=== PATIENT | female | born 1955 | race African-American/Black ===

== ENCOUNTER 2017-05-24 21:47 | Emergency (ER) | payer OTHER ==
[~2017-05-24] VITALS: Ht 165.1 cm; Wt 85.0 kg
[2017-05-24 21:59] VITALS: BP 188/89; PULSE 74; RESP 16; TEMP 98.5; O2SAT 100
[2017-05-24] MEDS ORDERED: KETOROLAC TROMETHAMINE 60 MG/2 ML (IM) VIAL IM ONE (22:00)
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
--- NOTE | 2017-05-24 23:09 | RADRPT ---
EXAM DATE/TIME: 05/24/2017 22:18 [facility] COMPARISON: No previous studies available for comparison. INDICATIONS : Pain due to fall. MEDICAL HISTORY : None. SURGICAL HISTORY : Tonsillectomy. section. ENCOUNTER: Initial ACUITY: 1 day PAIN SCORE: 8/10 LOCATION: Cervical spine. FINDINGS: Cervical spine alignment is normal. Vertebral bodies have normal height. I don't see a cortical break or trabecular disruption but there is questionable prevertebral soft tissue swelling from C2-C4. There is mild uncovertebral and facet osteoarthritis essentially throughout. For mild disc space narr owing seen at C5-C6 and C6-C7. CONCLUSION: Apparent prevertebral soft tissue swelling without apparent fracture. CT of the cervical spine sugges vilma if felt clinically indicated. Mild degenerative changes. Richard Lama MD on May 24, 2017 at 23:06 Board Certified Radiologist. This report was verified electronically.
--- NOTE | 2017-05-24 23:13 | RADRPT ---
EXAM DATE/TIME: 05/24/2017 22:33 [facility] COMPARISON: No previous studies available for comparison. INDICATIONS : Pain due to fall. MEDICAL HISTORY : None. SURGICAL HISTORY : Tonsillectomy. section. ENCOUNTER: Initial ACUITY: 1 day PAIN SCORE: 8/10 LOCATION: Thoracic spine FINDINGS: Slight dextroconvex curvature of the thoracic spine. No subluxations. No cortical break or trabecular disruption. There is minimal disc space narrowing and mild anterolateral osseous ridging at most lev els. CONCLUSION: Intact thoracic spine. Mild degenerative changes. Richard Lama MD on May 24, 2017 at 23:11 Board Certified Radiologist. This report was verified electronically.
--- NOTE | 2017-05-24 23:14 | RADRPT ---
EXAM DATE/TIME: 05/24/2017 22:36 [facility] COMPARISON: No previous studies available for comparison. INDICATIONS : Pain due to fall. MEDICAL HISTORY : None. SURGICAL HISTORY : section. Tonsillectomy. ENCOUNTER: Initial ACUITY: 1 day PAIN SCORE: 8/10 LOCATION: lumbar spine FINDINGS: There are five non-rib bearing vertebral bodies. The vertebral bodies are in normal alignment withou t evidence of subluxation or scoliosis. The disc spaces are maintained. The posterior elements are intact without evidence of spondylolysis. The pedicles are intact. Bony mineralization is normal. No fracture is identified. 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 CONCLUSION: Intact lumbar spine. Mild to moderate facet osteoarthritis at L4/L5 and L5/S1. Richard Lama MD on May 24, 2017 at 23:12 Board Certified Radiologist. This report was verified electronically.
--- NOTE | 2017-05-25 00:04 | RADRPT ---
EXAM DATE/TIME: 05/24/2017 23:43 [facility] COMPARISON: SPINE CERVICAL COMPLETE ([id number]), May 24, 2017, 22:18. INDICATIONS : Trauma; fall. RADIATION DOSE: 34.65 CTDIvol (mGy) MEDICAL HISTORY : None SURGICAL HISTORY : Tonsillectomy. section. ENCOUNTER: Initial ACUITY: 1 day PAIN SCALE: 5/10 LOCATION: neck TECHNIQUE: Volumetric scanning of the cervical spine was performed. Multiplanar reconstructions in the sagittal, coronal and oblique axial planes were performed. Using automated exposure control and adjustment o f the mA and/or kV according to patient size, radiation dose was kept as low as reasonably achievable to obtain optimal diagnostic quality images. DICOM format image data is available electronically f or review and comparison. FINDINGS: No fracture or subluxation demonstrated of the cervical spine. There is prominent ossification of the posterior longitudinal ligament at C4/C5, C5/C6 and C6/C7 with moderate spinal stenosis at each level. There is mild disc space narrowing with broad posterior disc osteophyte complexes at C5/C6 and C6/C7. Moderate osteoarthritis seen at C1/C2 anteriorly. There is prominent fat of the neck. The carotid arteries and jugular veins are extremely tortuous. No prevertebral edema or fluid demonstrated. CONCLUSION: 1. Intact cervical spine. 2. Multilevel degenerative changes as above. 3. Apparent prevertebral soft tissue widening on the comparison radiographs is related to prominent f at and very tortuous vessels. Richard Lama MD on May 24, 2017 at 23:58 Board Certified Radiologist. This report was verified electronically.
[2017-05-25] MEDS ORDERED: CYCL5TAB PO (00:20)
== END 2017-05-25 00:49 | disposition home or self-care (01) ==
LOC: NEPD 21:47
DX: S16.1XXA Strain of muscle, fascia and tendon at neck level, initial encounter (principal); S39.012A Strain of muscle, fascia and tendon of lower back, initial encounter; V00.831A Fall from motorized mobility scooter, initial encounter; Y92.59 Other trade areas as the place of occurrence of the external cause
CPT/HCPCS: 72050; 72072; 72110; 72125; 96372; 99285; J1885